=== PATIENT | female | born 1985 ===

== ENCOUNTER 2017-10-01 20:15 | Emergency (ER) | payer SELFPAY ==
[2017-10-01 20:16] VITALS: BMI 28.0
[2017-10-01] MEDS ORDERED: Sodium Chloride 0.9% 1,000 ML IV ONE (20:48)
[2017-10-01] MEDS ORDERED: Sodium Chloride 0.9% 1,000 ML ONE (20:56)
[2017-10-01 21:02] LABS: BASO % 0.4 % (0.0-2.0); EOS # 0.4 K/uL (0.0-0.7); EOS % 4.4 % (0.0-4.0); HEMOGLOBIN 12.2 g/dL (11.0-16.0); LYMPH # 4.2 K/uL (1.0-4.3); MEAN CELL VOLUME 84.7 fL (81.0-99.0); MEAN CORPUSCULAR HEMOGLOBIN 28.8 pg (27.0-31.0); MEAN PLATELET VOLUME 8.2 fL (7.2-11.7); MONO # 0.8 K/uL (0.0-0.8); MONO % 9.6 % (0.0-10.0); NEUT % 35.6 % (50.0-75.0); NRBC % 0.1 % (0.0-2.0); RBC 4.22 Mil/uL (3.80-5.20); WHITE BLOOD COUNT 8.4 K/uL (4.8-10.8)
--- NOTE | 2017-10-01 21:04 | C.PDOC ---
History Of Present Illness 32yo female, no known past medical history, presents to ED with complaints of worsening right lower quadrant pain for the past 3 months. Patient states the pain is associated with her menstrual period; she denies any chest pain, shortness of breath, nausea, vomiting, dysfunctional vaginal bleeding. She has been taking Motrin with minimal relief, last dose 6 hours ago. Patient states she recently had an ultrasound done which indicated ovarian cysts. She offers no other medical complaints. Time Seen by Provider: 10/01/17 20:44 Chief Complaint (Nursing): Abdominal Pain History Per: Patient History/Exam Limitations: no limitations Onset/Duration Of Symptoms: Persistent Current Symptoms Are (Timing): Still Present Associated Symptoms: denies: Fever, Chills, Nausea, Chest Pain Abnormal Vaginal Bleeding: No Past Medical History Reviewed: Historical Data, Nursing Documentation, Vital Signs Vital Signs: Last Vital Signs Temp 98.2 F 10/01/17 20:37 Pulse 85 10/01/17 20:37 Resp 16 10/01/17 20:37 BP 127/82 10/01/17 20:37 Pulse Ox 99 10/01/17 23:27 - Medical History PMH: No Chronic Diseases Surgical History: No Surg Hx Family History: States: Unknown Family Hx - Social History Hx Alcohol Use: No Hx Substance Use: No Review Of Systems Except As Marked, All Systems Reviewed And Found Negative. Cardiovascular: Negative for: Chest Pain Respiratory: Negative for: Shortness of Breath Gastrointestinal: Positive for: Abdominal Pain Genitourinary: Negative for: Vaginal Bleeding Physical Exam - Physical Exam Appears: Non-toxic, No Acute Distress Skin: Warm, Dry Head: Atraumatic, Normacephalic Eye(s): bilateral: Normal Inspection Oral Mucosa: Moist Neck: Normal ROM, Supple Cardiovascular: Rhythm Regular Respiratory: Normal Breath Sounds Gastrointestinal/Abdominal: Normal Exam, Soft, Other (obese abdomen) Pelvic: Adnexal Tenderness (right sided) Extremity: Normal ROM Neurological/Psych: Oriented x3 ED Course And Treatment - Laboratory Results Result Diagrams: 10/01/17 20:59 10/01/17 20:59 Lab Interpretation: Normal (ua neg.) O2 Sat by Pulse Oximetry: 99 (RA) Pulse Ox Interpretation: Normal - Radiology CXR: Interpreted by Me CXR Interpretation: Yes: No Acute Disease - Other Rad abd x 2 X-Ray: Interpreted by Me (+FOS) Reevaluation Time: 23:41 Reassessment Condition: Improved Medical Decision Making Medical Decision Making: Impression: r/o ovarian torsion Plan: -- IV Fluids -- Toradol 15 mg IV -- Ultram 50 mg PO -- XR Abdomen -- US Pelvis Time: 2325 US Pelvis FINDINGS: Uterus/cervix: Uterus measures 8.9 x 3.6 x 5.4 cm in size. No myometrial mass. Endometrium: 0.6 cm in thickness. Right ovary: 3.5 x 2.2 x 2.5 cm in size. No mass. Small follicles. Left ovary: 2.8 x 1.2 x 2.4 cm in size. No mass. Small follicles. Free fluid: No significant free fluid. Bladder: Unremarkable as visualized. IMPRESSION: 1. No acute findings. US Duplex Arterial/Venous FINDINGS: Right ovary: Normal arterial and venous blood flow. No torsion. Left ovary: Normal arterial and venous blood flow. No torsion. IMPRESSION: No definite sonographic evidence of ovarian torsion. impression: constipation Disposition Doctor Will See Patient In The: Office Counseled Patient/Family Regarding: Studies Performed, Diagnosis - Disposition Disposition: HOME/ ROUTINE Disposition Time: 23:42 Condition: GOOD Forms: [facility] ([place]uan) - Clinical Impression Clinical Impression: Colicky periumbilical abdominal pain - Scribe Statement The provider has reviewed the documentation as recorded by the Scribe (Gina Oreilly) Provider Attestation: All medical record entries made by the Scribe were at my direction and personally dictated by me. I have reviewed the chart and agree that the record accurately reflects my personal performance of the history, physical exam, medical decision making, and the department course for this patient. I have also personally directed, reviewed, and agree with the discharge instructions and disposition.
[2017-10-01 21:06] LABS: HCG,QUALITATIVE URINE NEGATIVE (NEGATIVE)
[2017-10-01 21:12] LABS: SQUAMOUS EPITHIAL 1 /hpf (0-5); URINE BACTERIA RARE (<OCC); URINE BILIRUBIN NEGATIVE (NEGATIVE); URINE BLOOD 1+ (NEGATIVE); URINE CLARITY Clear (Clear); URINE COLOR Colorless (YELLOW); URINE GLUCOSE (UA) NORMAL (Normal); URINE LEUKOCYTE ESTERASE NEG Leu/uL (Negative); URINE PROTEIN NEGATIVE (NEGATIVE); URINE UROBILINOGEN NORMAL mg/dL (0.2-1.0)
[2017-10-01 21:15] LABS: ALB/GLOB RATIO 1.2 (1.0-2.1); ALT/SGPT 93 U/L (9-52); AST/SGOT 80 U/L (14-36); BLOOD UREA NITROGEN 12 mg/dL (7-17); CALCIUM 8.8 mg/dl (8.6-10.4); GFR AFRICAN-AMERICAN > 60; GFR NON-AFRICAN AMERICAN > 60; LIPASE 164 U/L (23-300)
--- NOTE | 2017-10-01 23:22 | US ---
EXAM: US Pelvis Complete, Transabdominal US Pelvis, Transvaginal CLINICAL HISTORY: 32 years old, female; Pain; Pelvic pain; Additional info: R adnexal pain, ? ovarian torsion/cyst TECHNIQUE: Real-time transabdominal and transvaginal pelvic ultrasound (complete) with image documentation. Transvaginal imaging was used for better evaluation of the endometrium and adnexa. COMPARISON: No relevant prior studies available. FINDINGS: Uterus/cervix: Uterus measures 8.9 x 3.6 x 5.4 cm in size. No myometrial mass. Endometrium: 0.6 cm in thickness. Right ovary: 3.5 x 2.2 x 2.5 cm in size. No mass. Small follicles. Left ovary: 2.8 x 1.2 x 2.4 cm in size. No mass. Small follicles. Free fluid: No significant free fluid. Bladder: Unremarkable as visualized. IMPRESSION: 1.No acute findings. EXAM: US Duplex Arterial/Venous of the Pelvis, Complete CLINICAL HISTORY: 32 years old, female; Pain; Pelvic pain; Additional info: R adnexal pain, ? ovarian torsion/cyst TECHNIQUE: Real-time duplex ultrasound scan of the pelvis integrating B-mode two-dimensional vascular structure, Doppler spectral analysis and color flow Doppler imaging. COMPARISON: No relevant prior studies available. FINDINGS: Right ovary: Normal arterial and venous blood flow. No torsion. Left ovary: Normal arterial and venous blood flow. No torsion. IMPRESSION: No definite sonographic evidence of ovarian torsion.
[2017-10-01 23:46] VITALS: BP 100/64; PULSE 68; RESP 20; TEMP 98.4; O2SAT 98
--- NOTE | 2017-10-02 08:29 | RAD ---
HISTORY: lower abd pain COMPARISON: No prior. FINDINGS: BOWEL: Mild retained feces. No bowel obstruction. No hepatic or splenic enlargement. No masses or abnormal calcifications. BONES: Normal. OTHER FINDINGS: None. IMPRESSION: No evidence bowel obstruction.
== END 2017-10-01 23:48 | disposition home or self-care (01) ==
LOC: C.ER 20:15
DX: K59.00 Constipation, unspecified (principal); R10.33 Periumbilical pain
CPT/HCPCS: 74019; 76830; 76856; 80053; 81001; 83690; 84703; 85025; 96361; 96374; 99284; J1885; J7040